=== PATIENT | female | born 1945 | race Caucasian/White ===

== ENCOUNTER 2018-04-15 00:54 | Outpatient (CLI) | payer MEDICARE, OTHER, MEDICAID, SELFPAY ==
--- NOTE | 2018-04-15 10:23 | DI.MAMMO_ITS ---
SYMPTOMS/DIAGNOSIS: SCREENING, Z12.31 MAMMOGRAM: Mammograms were interpreted according to the usual protocol including computer analysis with CAD system, tomosynthesis and C view imaging. Comparison is made with exams from 2015 through 2017. The breasts are composed of fatty density tissue. There are no suspicious masses or suspicious microcalcifications. There has been no significant change. IMPRESSION: Category I A, negative mammogram. Yearly screening mammography is recommended. [facility] ASSESSMENT OF FINDINGS: Negative. Category 1. Patient will receive a letter notifying them of these results. BI-RAD category A. The breasts are almost entirely fatty.
== END 2018-04-15 01:14 ==
PROVIDERS: PCP Nurse Practitioner; Visit Provider Obstetrics & Gynecology Gynecology
DX: Z12.31 Encounter for screening mammogram for malignant neoplasm of breast (principal)
CPT/HCPCS: 77063; 77067

== ENCOUNTER 2019-01-22 08:33 | Outpatient (REF) | payer MEDICARE, OTHER, MEDICAID, SELFPAY ==
[2019-01-22 12:40] LABS: ALT 27 U/L (14-59); AST 18 U/L (15-37); Alkaline Phosphatase 90 U/L (46-116); Anion Gap 7.9 mmol/L (3-11); BUN 18 mg/dL (7-18); Bilirubin, Total 0.5 mg/dL (0.2-1.0); CO2 27.1 mmol/L (21.0-32.0); CREATININE 0.73 mg/dL (0.55-1.02); Calcium 9.1 mg/dL (8.5-10.1); Calculated LDL 113 mg/dL; Chloride 104 mmol/L (98-107); Cholesterol 184 mg/dL (50-200); Glucose 118 mg/dL (70-100); HDL Cholesterol 59 mg/dL (40-60); Potassium 4.2 mmol/L (3.5-5.1); Sodium 139 mmol/L (136-145); Total Protein 7.4 g/dL (6.4-8.2); Triglyceride 64 mg/dL (30-150)
== END 2019-01-22 08:53 ==
LOC: NCHCN 08:33
PROVIDERS: PCP Nurse Practitioner; Visit Provider Nurse Practitioner
DX: I10 Essential (primary) hypertension (principal)
CPT/HCPCS: 80053; 80061

== ENCOUNTER 2019-06-29 01:27 | Outpatient (CLI) | payer MEDICARE, OTHER, MEDICAID, SELFPAY ==
--- NOTE | 2019-06-29 11:35 | DI.MAMMO_ITS ---
EXAM: MG MAMMO SCREENING CLINICAL HISTORY: SCREENING, Z12.39. TECHNIQUE: Full field digital CC and MLO mammographic images were obtained with 3D tomosynthesis and utilizing computer aided detection (CAD). COMPARISON: . 2009 to 2017 FINDINGS: Breast Density - Category A - Almost entirely fatty Masses/Architectural Distortion: None seen. Microcalcifications: No suspicious pleomorphic-type calcifications are seen. Skin Thickening/Nipple Retraction: None. Axilla: Unremarkable. IMPRESSION: 1. BI-RADS category 1, negative. No significant interval change with no specific features of maligna ncy noted. 2. Unless there is more urgent need, screening mammography is recommended, as per [employer] guidelines. A negative radiographic report should not delay biopsy if a dominant or clinically suspicious mass is present. Up to ten percent of cancers are not identified on mammography. A negative report may reinforce clinical impression. Adenosis and dense breasts may obscure an underlying neoplasm. False positive reports average 6 to 10%. Patient will receive a letter notifying them of these results.
== END 2019-06-29 01:47 ==
PROVIDERS: PCP Nurse Practitioner; Visit Provider Nurse Practitioner
DX: Z12.31 Encounter for screening mammogram for malignant neoplasm of breast (principal)
CPT/HCPCS: 77063; 77067

== ENCOUNTER 2020-01-19 11:05 | Outpatient (REF) | payer MEDICARE, OTHER, MEDICAID, SELFPAY ==
[2020-01-19 19:22] LABS: ALT 26 U/L (14-59); AST 18 U/L (15-37); Albumin 3.9 g/dL (3.4-5.0); Alkaline Phosphatase 92 U/L (46-116); Anion Gap 10.8 mmol/L (3-11); BUN 13 mg/dL (7-18); Bilirubin, Total 0.5 mg/dL (0.2-1.0); CO2 26.2 mmol/L (21.0-32.0); CREATININE 0.73 mg/dL (0.55-1.02); Calculated LDL 109 mg/dL (<100); Chloride 107 mmol/L (98-107); Cholesterol 176 mg/dL (<200); Glucose 109 mg/dL (74-106); HDL Cholesterol 55 mg/dL (40-60); Potassium 4.1 mmol/L (3.5-5.1); Sodium 144 mmol/L (136-145); Triglyceride 63 mg/dL (<150)
[2020-01-21 04:43] LABS: Vitamin D 25 Total 40.6 ng/ml (30-100)
== END 2020-01-19 11:25 ==
LOC: NCHCN 11:05
PROVIDERS: PCP Nurse Practitioner; Visit Provider Nurse Practitioner
DX: I10 Essential (primary) hypertension (principal); M81.0 Age-related osteoporosis without current pathological fracture; Z13.6 Encounter for screening for cardiovascular disorders
CPT/HCPCS: 80053; 80061; 82306

== ENCOUNTER 2020-06-07 00:46 | Outpatient (CLI) | payer MEDICARE, OTHER, MEDICAID, SELFPAY ==
--- NOTE | 2020-06-07 | DI.DEXA_ITS ---
EXAM: XR DEXA BONE DENSITY W/WO KALI CLINICAL HISTORY: H/O OSTEOPOROSIS, M81.0 TECHNIQUE: COMPARISON: Comparison examination is 01/15/2017. FINDINGS: Lateral Spine Image: Unremarkable. No compression deformities identified. Left hip: Total T-Score: -1.1. This compares with a total T-score of -1.2 on the prior examination. Total Z-Score: 0.5 T- and Z-scores: Findings are consistent with osteopenia. Lumbar Spine: Total T-Score: -3.3. This compares with a total T-score of -3.2 on the prior examination. Total Z-Score: -1.0 T- and Z-scores: Findings are consistent with osteoporosis and high fracture risk. IMPRESSION: Findings of osteoporosis in the lumbar spine.
== END 2020-06-07 01:06 ==
PROVIDERS: PCP Nurse Practitioner; Visit Provider Nurse Practitioner
DX: M47.816 Spondylosis without myelopathy or radiculopathy, lumbar region (principal); Z78.0 Asymptomatic menopausal state
CPT/HCPCS: 77080

== ENCOUNTER 2020-09-11 20:01 | Emergency (ER) | payer MEDICARE, OTHER, MEDICAID, SELFPAY ==
[2020-09-11] VITALS (26 sets, daily range): BP systolic 129–172; BP diastolic 54–84; PULSE 74–107; RESP 9–23; TEMP 36.5; O2SAT 95–100
--- NOTE | 2020-09-11 19:45 | RT.EKG_ITS ---
APPROVED REPORT Exam: Resting ECG Patient Location: E HR:[id number] bpm ECG Measurements Heart Rate [id number] AXIS NE [id number] P [id number] QRSd [id number] QRS [id number] QT [id number] T [id number] QTc 0 Conclusion no data
--- NOTE | 2020-09-11 20:09 | ED.GENADUL_ITS ---
Discharge Plan Disposition Patient Disposition: HOME Condition: Good Discharge Details Clinical Impression: Insomnia Primary Care Provider: Shannon Coelho Home Meds and New Rx's Prescriptions: Continued pentoxifylline 400 MG tablet extended release 400 mg PO TID RF: 0 losartan 100 MG tablet 100 mg PO DAILY RF: 0 multivitamin 1 EACH capsule 1 ea PO DAILY RF: 0 One-Per-Day [place]-3 1 EACH capsule,delayed release(DR/EC) 2 ea PO DAILY RF: 0 aspirin 325 MG tablet 325 mg PO DAILY RF: 0 trazodone 100 mg tablet 50 mg PO DAILY RF: 0 acetaminophen [Mapap Extra Strength] 500 MG tablet 1,000 mg PO Q6H PRN PRNRF: 0 ibuprofen 600 MG tablet 600 mg PO QID PRN PRNRF: 0 Discharge Instructions Additional Instructions: You may take a dose of Ativan when you get home before bed in hopes that she will be able to sleep through the night. Contact primary care tomorrow for further follow-up and management of insomnia and anxiety. Return to ED for mental status changes, neurologic changes, other concerns Referrals: Shannon Coelho [Primary Care Provider] - Medical Decision Making Patient having difficulty sleeping as well as feeling anxious and being unable to turn off her mind. There is nothing focal neurologically. No complaint of pain, shortness of breath, vomiting, dizziness. Will send screening blood work and urinalysis. No imaging. 10:40 PM - Laboratory studies unremarkable including a normal TSH. Urinalysis negative. EKG with no acute ST changes. Will provide patient with 1 mg Ativan tablet to take at home tonight to see if she can get a good nights rest. Contact primary care in the morning for follow-up and further evaluation and management of insomnia/anxiety. Return to ED if any mental status changes, neurologic changes, other concerns Lab Data Lab results reviewed: Yes I reviewed the patient's lab results. Lab results narrative: Unremarkable laboratory studies ECG Data Attestation: I personally reviewed and interpreted this ECG (s) as follows: Prior ECG tracings: not available for review Interpretation: see EKG HPI General Mode of arrival: EMS . Date/Time Provider Initiated Documentation: 09/11/20 20:09 . Limitations to Documentation: no limitations . Information obtained by: patient, EMS and RN notes reviewed . HPI Narrative: Patient presents to ED by ambulance with generalized feeling unwell, anxious. She has had insomnia most of the week despite taking her trazodone. She is able to fall asleep but is unable to stay asleep. She has been on this for some time, it is not a new medicine. She denies any headache or neurologic changes. She has no confusion or speech problems. 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 Today she has been anxious, pacing around, generalized angst feeling. There is no chest pain, palpitations, shortness of breath, fever, vomiting, diarrhea, abdominal pain, urinary symptoms, other complaints. She took her trazodone at 3 PM hoping it would help, but it has not. Related Data Home Medications Medication Instructions Recorded Confirmed One-Per-Day [place]-3 2 ea PO DAILY 04/25/15 09/11/20 aspirin 325 mg PO DAILY tab-cap 04/25/15 09/11/20 losartan 100 mg PO DAILY tab-cap 04/25/15 09/11/20 multivitamin 1 ea PO DAILY 04/25/15 09/11/20 pentoxifylline 400 mg PO TID 04/25/15 02/14/18 acetaminophen [Mapap Extra 1,000 mg PO Q6H PRN PRN tab 06/27/17 02/14/18 Strength] ibuprofen 600 mg PO QID PRN PRN tab 06/27/17 02/14/18 trazodone 100 mg tablet 50 mg PO DAILY tab-cap 02/14/18 09/11/20 Previous Rx's Medication Instructions Recorded acetaminophen [Mapap Extra 1,000 mg PO Q6H PRN PRN tab 06/27/17 Strength] ibuprofen 600 mg PO QID PRN PRN tab 06/27/17 Allergies Allergy/AdvReac Type Severity Reaction Status Date / Time adhesive Allergy Verified 09/11/20 20:23 latex Allergy Verified 09/11/20 20:23 codeine AdvReac Severe vomiting Verified 09/11/20 20:23 patrolium based products AdvReac Intermediate Uncoded 09/11/20 20:23 Review of Systems Narrative: As documented in HPI otherwise negative as below. Const: no fever, chills, weakness Resp: no cough, SOB, pleuritic pain CV: no CP, diaphoresis, edema, syncope GI: no abdominal pain, nausea, vomiting, diarrhea Neuro: no headache, numbness, focal weakness, confusion [facility] Medical History Anxiety and depression Trazadone for sleep. Hx of deep venous thrombosis Hypertension Venous stasis ulcer of both lower extremities without varicose veins improved after 1yr of outpt treatment at [facility] [place]. Surgical History Appendectomy (06/23/17) Family History (Updated 01/13/16 @ 17:56 by Yudith Lin MD) Mother , AAA at age 90. No problems noted. Father No problems noted. Other Abdominal aortic aneurysm Social History Smoking/Tobacco Use Status: Former Tobacco Use Smoking risk assessment performed?: Yes Alcohol Intake: former Details: seldom Drug use: Never Substance use type: does not use Adopted: No Number of Children: 0 current occupation: self employed retail What type of physical activity do you participate in: regular exercise Duration: 60-90 minutes/day Frequency: daily Seatbelt use: always Do you feel safe at home: Yes Do you feel safe in your relationship?: Yes Female Reproductive History Menstrual Menopause type: natural (In her 50s. No issues with severe vasomotor symptoms) History History 0 Para Hx # Term Pregnancies Multiple births Hx # Pregnancies Ectopic pregnancies AB induced Hx Number of Living Children AB spontaneous Exam Narrative Exam Narrative: Const: Obese elderly female in NAD. HEENT: NC/AT. Normal facial exam. Eyes: PERRL and EOMI. Neck: Supple. Trachea midline. Lungs: Normal respiratory effort. Lungs are clear. Cor: RRR without murmur/gallop. Good radial pulses. GI: Soft. NT/ND. No guarding or rebound. Neuro: A+O x 3. Normal speech, mentation. Cranial nerves II - XII grossly intact. No gross motor or sensory deficit. Ext: No C/C/E. Venous stasis bilateral lower extremities. Various dressings covering ulcers which were not taken down. No erythema or warmth involving legs. Skin: Warm and dry without rash. Psych: Normal speech and thought content. No outward signs of anxiety. No SI.
--- NOTE | 2020-09-11 20:30 | RT.EKG_ITS ---
APPROVED REPORT Exam: Resting ECG Patient Location: E HR:77 bpm ECG Measurements Heart Rate 77 AXIS OR 156 P 47 QRSd 85 QRS 1 QT 395 T 23 QTc 448 Conclusion Sinus rhythm...normal P axis, V-rate 60- 99 Probable left atrial enlargement...P >50mS, <-0.10mV V1 Inferior infarct, old...Q >35mS, II III aVF No STEMI or acute ST changes.
[2020-09-11 20:57] LABS: Abs Immature Grans 0.02 10^3/uL (0.0-0.06); Absolute Basophil Count 0.05 10^3/uL (0.0-0.2); Absolute Eosinophil Count 0.32 10^3/uL (0.0-0.7); Absolute Lymphocyte Count 1.55 10^3/uL (1.2-3.4); Absolute Monocyte Count 0.51 10^3/uL (0.1-0.8); Absolute Neutrophil Count 4.73 10^3/uL (1.2-6.7); Basophils % 0.7; Eosinophils % 4.5; HGB 13.9 g/dL (11.2-15.7); Immature Grans % 0.3; Lymphocytes % 21.6; MCH 31.8 pg (27.0-33.0); MCHC 33.1 % (32.0-36.0); MCV 96.1 fL (80-95); Monocytes % 7.1; Neutrophils % 65.8; Nucleated RBC 0 %; Platelet Count 290 10^3/uL (130-400); RBC 4.37 10^6/uL (3.93-5.22); RDW 13.1 % (11.7-14.6); RDW-SD 45.9 fL; WBC 7.18 10^3/uL (4.4-10.8)
[2020-09-11 21:09] LABS: ALT 28 U/L (14-59); AST 18 U/L (15-37); Alkaline Phosphatase 98 U/L (46-116); Anion Gap 9.1 mmol/L (3-11); BUN 16 mg/dL (7-18); Bilirubin, Total 0.3 mg/dL (0.2-1.0); CO2 27.9 mmol/L (21.0-32.0); CREATININE 0.9 mg/dL (0.55-1.02); Calcium 9.4 mg/dL (8.5-10.1); Chloride 104 mmol/L (98-107); Glucose 101 mg/dL (74-106); Magnesium 2.2 mg/dL (1.8-2.4); Potassium 3.8 mmol/L (3.5-5.1); Sodium 141 mmol/L (136-145); Total Protein 7.9 g/dL (6.4-8.2)
[2020-09-11 21:11] LABS: Troponin I < 0.05 ng/mL (<0.06)
[2020-09-11 21:48] LABS: Bilirubin Negative (Negative); Blood Negative (Negative); Clarity Clear (Clear); Glucose Negative (Negative); Ketones Negative (Negative); Leukocyte Esterase Trace (Negative); Nitrite Negative (Negative); Urobilinogen 0.2 EU/dL (Up TO 0.2); pH 6.5 (5-8)
[2020-09-11 21:55] LABS: Bacteria Few HPF (Negative); Epithelial Cells Rare HPF (Negative); RBC Negative HPF (0-2); WBC 0-2 HPF (0-5)
[2020-09-11 21:56] LABS: C & S Indicated? Yes; Casts Negative LPF (Negative); Crystals Negative HPF (Negative); Mucus Negative (Negative)
[2020-09-11] MEDS: LORazepam 1 MG TAB PO (22:54)
== END 2020-09-11 23:32 | disposition home or self-care (01) ==
PROVIDERS: Emergency Provider Emergency Medicine; PCP Nurse Practitioner
DX: F51.05 Insomnia due to other mental disorder (principal); F41.8 Other specified anxiety disorders
CPT/HCPCS: 80053; 93005; 99284; 81003; 81015; 83735; 84443; 84484; 85025; 87086; 93010

== ENCOUNTER 2020-11-15 01:31 | Outpatient (CLI) | payer MEDICARE, MEDICAID, SELFPAY ==
--- NOTE | 2020-11-15 08:15 | DI.MAMMO_ITS ---
Exam(s) MAMMO SCREENING EXAM: MAMMO SCREENING CLINICAL HISTORY: SCREENING, Z12.39 TECHNIQUE: Mammograms were interpreted according to the usual protocol including computer analysis w [employer] CAD system, tomosynthesis and C-view imaging. COMPARISON: FINDINGS: The breasts are of moderate density with fairly symmetrical distribution of fibroglandular tissue. N o dominant mass or clumped microcalcification is identified in either breast. The current examinatio n is compared with previous examinations including June 2019 and there has been no gross interval change in appearance in comparison with prior studies. IMPRESSION: No specific evidence of malignancy at this time. Routine screening examinations are suggested at yea rly intervals in this age group according to the ACS ACR guidelines. BI-RADS Category 1 - Negative Breast Density - Category B - Scattered areas of fibroglandular density
== END 2020-11-15 01:51 ==
PROVIDERS: PCP Nurse Practitioner; Visit Provider Nurse Practitioner
DX: Z12.31 Encounter for screening mammogram for malignant neoplasm of breast (principal); R92.8 Other abnormal and inconclusive findings on diagnostic imaging of breast
CPT/HCPCS: 77063; 77067

== ENCOUNTER 2021-07-18 18:12 | Outpatient (REF) | payer MEDICARE, SELFPAY ==
[2021-07-18 17:37] LABS: ALT 25 U/L (14-59); AST 11 U/L (15-37); Albumin 3.8 g/dL (3.4-5.0); Alkaline Phosphatase 94 U/L (46-116); Anion Gap 9.9 mmol/L (3-11); BUN 14 mg/dL (7-18); Bilirubin, Total 0.3 mg/dL (0.2-1.0); CO2 25.1 mmol/L (21.0-32.0); CREATININE 0.7 mg/dL (0.55-1.02); Chloride 105 mmol/L (98-107); Glucose 84 mg/dL (74-106); Sodium 140 mmol/L (136-145); Total Protein 7.1 g/dL (6.4-8.2)
== END 2021-07-18 18:13 | disposition home or self-care (01) ==
LOC: NCHCN 18:12
PROVIDERS: PCP Nurse Practitioner; Visit Provider Nurse Practitioner Family
DX: I10 Essential (primary) hypertension (principal); I83.009 Varicose veins of unspecified lower extremity with ulcer of unspecified site; M81.0 Age-related osteoporosis without current pathological fracture
CPT/HCPCS: 80053

== ENCOUNTER 2022-07-26 18:32 | Outpatient (REF) | payer MEDICARE, SELFPAY ==
[2022-07-26 17:46] LABS: HCT 42.5 % (36.0-46.0); HGB 13.9 g/dL (11.2-15.7); MCH 31.1 pg (27.0-33.0); MCHC 32.7 % (32.0-36.0); MCV 95 fL (80-95); MPV 9.2 fL (8.0-11.0); Platelet Count 274 10^3/uL (130-400); RBC 4.47 10^6/uL (3.93-5.22); RDW 12.8 % (11.7-14.6); RDW-SD 44.8 fL; WBC 6.62 10^3/uL (4.4-10.8)
[2022-07-26 18:16] LABS: Microalb ug/mg Crea 24.6 ug/mg Cr
[2022-07-26 18:18] LABS: ALT 30 U/L (14-59); AST 25 U/L (15-37); Alkaline Phosphatase 98 U/L (46-116); Anion Gap 8.4 mmol/L (3-11); BUN 14 mg/dL (7-18); Bilirubin, Total 0.3 mg/dL (0.2-1.0); CO2 29.6 mmol/L (21.0-32.0); CREATININE 0.8 mg/dL (0.55-1.02); Calcium 9.5 mg/dL (8.5-10.1); Calculated LDL 117 mg/dL (<100); Chloride 105 mmol/L (98-107); Cholesterol 202 mg/dL (<200); Estimated GFR 77.27 (mL/min/1.73m2); Glucose 107 mg/dL (74-106); HDL Cholesterol 67 mg/dL (40-60); Potassium 4.5 mmol/L (3.5-5.1); Sodium 143 mmol/L (136-145); Total Protein 7.3 g/dL (6.4-8.2); Triglyceride 92 mg/dL (<150)
[2022-07-26 18:24] LABS: Vitamin D 25 Total 37.1 ng/mL (30-100)
== END 2022-07-26 18:33 | disposition home or self-care (01) ==
LOC: NCHCN 18:32
PROVIDERS: PCP Nurse Practitioner; Visit Provider Nurse Practitioner Family
DX: I10 Essential (primary) hypertension (principal); M81.0 Age-related osteoporosis without current pathological fracture; F41.8 Other specified anxiety disorders; G47.00 Insomnia, unspecified
CPT/HCPCS: 80053; 80061; 82306; 85027; 82043; 82570

== ENCOUNTER → 2023-02-07 02:15 | Outpatient (CLI) | payer MEDICARE, SELFPAY ==
--- NOTE | 2023-02-07 | DI.MAMMO_ITS ---
Exam(s) MAMMO SCREENING EXAM: MAMMO SCREENING CLINICAL HISTORY: SCREENING FOR BREAST CANCER Z12.39 TECHNIQUE: Bilateral full field digital CC and MLO mammographic images were obtained with 3D tomosyn thesis and utilizing computer aided detection (CAD). COMPARISON: Available for comparison. FINDINGS: Masses/Architectural Distortion: None seen. Microcalcifications: No suspicious pleomorphic-type are seen. Skin Thickening/Nipple Retraction: None. IMPRESSION: 1. No significant interval change with no specific features of malignancy noted. 2. Unless there is more urgent need, screening mammography is recommended, as per [employer] guidelines. BI-RADS Category 1 - Negative Breast Density - Category B - Scattered areas of fibroglandular density Breast density category C or D implies that the patient has dense breast tissue. Dense breast tissue is very common and is not abnormal but dense breast tissue can make it harder to find cancer on a ma mmogram. Also, dense breast tissue may increase their breast cancer risk. This information about the result of the mammogram report was provided to the patient to raise their awareness. Use this report when you speak with the patient about their risks for breast cancer, which includes their family hist ory. At that time, you may recommend for more screening tests (Ultrasound or MRI) as they might be us eful based on their risk. A negative radiographic report should not delay biopsy if a dominant or clinically suspicious mass is present. Up to ten percent of cancers are not identified on mammography. A negative report may reinforce clinical impression. Adenosis and dense breasts may obscure an underlying neoplasm. False positive reports average 6 to 10%. Patient will receive a letter notifying them of these results.
== END ==
PROVIDERS: PCP Nurse Practitioner; Visit Provider Nurse Practitioner Family
DX: Z12.31 Encounter for screening mammogram for malignant neoplasm of breast (principal)
CPT/HCPCS: 77063; 77067

== ENCOUNTER 2023-08-01 17:22 | Outpatient (REF) | payer MEDICARE, SELFPAY ==
[2023-08-01 21:47] LABS: ALT 26 U/L (14-59); AST 26 U/L (15-37); Albumin 3.7 g/dL (3.4-5.0); Alkaline Phosphatase 70 U/L (46-116); Anion Gap 11.7 mmol/L (3-11); BUN 17 mg/dL (7-18); Bilirubin, Total 0.2 mg/dL (0.2-1.0); CO2 25.3 mmol/L (21.0-32.0); CREATININE 0.7 mg/dL (0.55-1.02); Calcium 9.5 mg/dL (8.5-10.1); Chloride 105 mmol/L (98-107); Estimated GFR 90.14 (mL/min/1.73m2); Glucose 87 mg/dL (74-106); Magnesium 2.1 mg/dL (1.8-2.4); Potassium 3.9 mmol/L (3.5-5.1); Sodium 142 mmol/L (136-145); Total Protein 7.3 g/dL (6.4-8.2)
== END 2023-08-01 17:23 | disposition home or self-care (01) ==
LOC: NCHCN 17:22
PROVIDERS: PCP Nurse Practitioner Family; Visit Provider Nurse Practitioner Family
DX: I10 Essential (primary) hypertension (principal); M81.0 Age-related osteoporosis without current pathological fracture
CPT/HCPCS: 80053; 83735

== ENCOUNTER 2024-08-20 10:50 | Outpatient (REF) | payer MEDICARE, SELFPAY ==
[2024-08-20 16:12] LABS: ALT 25 U/L (14-59); AST 19 U/L (15-37); Albumin 3.9 g/dL (3.4-5.0); Alkaline Phosphatase 75 U/L (46-116); Anion Gap 12.3 mmol/L (3-11); BUN 23 mg/dL (7-18); Bilirubin, Total 0.5 mg/dL (0.2-1.0); CO2 24.7 mmol/L (21.0-32.0); CREATININE 0.8 mg/dL (0.55-1.02); Chloride 107 mmol/L (98-107); Estimated GFR 76.31 (mL/min/1.73m2); Glucose 125 mg/dL (74-106); Magnesium 2.4 mg/dL (1.8-2.4); Potassium 4.3 mmol/L (3.5-5.1); Sodium 144 mmol/L (136-145); Total Protein 7.1 g/dL (6.4-8.2); Vitamin D 25 Total 42 ng/mL (30-100)
== END 2024-08-20 10:51 | disposition home or self-care (01) ==
LOC: NCHCN 10:50
PROVIDERS: PCP Nurse Practitioner Family; Visit Provider Nurse Practitioner Family
DX: M81.0 Age-related osteoporosis without current pathological fracture (principal)
CPT/HCPCS: 80053; 82306; 83735